=== PATIENT | female | born 1965 | race Two or more races ===

== ENCOUNTER 2025-02-07 09:16 | Outpatient (CLI) | payer OTHER | END 2025-02-07 09:26 | disposition home or self-care (01) | LOC: RAD 09:16 | PROVIDERS: ATTEND Internal Medicine Cardiovascular Disease | DX: I11.9 Hypertensive heart disease without heart failure (principal); E11.9 Type 2 diabetes mellitus without complications; R07.9 Chest pain, unspecified ==

== ENCOUNTER 2025-04-08 09:14 | Emergency (ER) | payer OTHER ==
[~2025-04-08] VITALS: Ht 170.2 cm; Wt 92.5 kg
[2025-04-08] MEDS ORDERED: METFORMIN HCL1000 M2 (09:28)
[2025-04-08 09:29] VITALS: BP 157/69; O2SAT 97
[2025-04-08] MEDS ORDERED: LOSARTAN-HCTZ1 EACH (09:29)
[2025-04-08] MEDS ORDERED: GLIPIZIDE XL10 MG (09:29)
[2025-04-08] MEDS ORDERED: ACETAMINOPHEN 500 MG GEL..CAP PO ONE ×2 (09:45→09:49)
[2025-04-08] MEDS ORDERED: METHYLPREDNISOLONE SOD SUCC 125 MG VIAL IV ONE (09:45)
[2025-04-08] MEDS ORDERED: METHYLPREDNISOLONE SOD SUCC 125 MG VIAL ONE (09:49)
[2025-04-08] MEDS ORDERED: SODIUM CHLORIDE FOR INHALATION 1 VIAL.NEB IH ONE ×2 (10:00→10:54)
[2025-04-08] MEDS ORDERED: CODEINE PHOSPHATE/GUAIFENESIN 5 ML ML PO ONE (10:00)
[2025-04-08] MEDS ORDERED: GUAIFENESIN/DEXTROMETHORPHAN 100MG/10ML BLIST.PACK PO ONE ×2 (10:00→10:01)
[2025-04-08 10:10] LABS: BASO % 0.3 % (0.1-1.2); EOS # 0.36 (0.04-0.54); EOS % 3.2 % (0.7-7.0); LYMPH # 4.51 (1.18-3.74); LYMPH % 40.1 % (19.3-53.1); MEAN PLATELET VOLUME 10.40 fl (9.4-12.4); MONO # 0.52 (0.24-0.82); MONO % 4.6 % (4.7-12.5); NEUT # 5.78 (1.56-6.13); NEUT % 51.4 % (34.0-71.1); RED CELL DISTRIBUTION WIDTH 12.2 % (11.6-14.4)
[2025-04-08 10:26] LABS: URINE APPEARANCE Clear; URINE BILIRRUBIN Negative (NEGATIVE); URINE BLOOD Negative; URINE COLOR Yellow; URINE GLUCOSE Negative (NEGATIVE); URINE KETONE Negative (NEGATIVE); URINE LEUKOCYTE Negative; URINE NITRATE Negative; URINE PROTEIN Negative (NEGATIVE); URINE UROBILINOGEN 0.2 E.U./dl
[2025-04-08 10:27] LABS: URINE BACTERIA 21.5 uL (0.0-1933); URINE EPITHELIAL CELLS 5.2 uL (0.0-38.8); URINE WBC 2.6 uL (0.0-23.2)
[2025-04-08 10:39] LABS: URINE CAST 0.29 uL (0.0-1.40); URINE RBC 0.7 uL (0.0-20.8)
[2025-04-08 10:50] LABS: ALT/SGPT 37.0 U/L (12-78); AST/SGOT 21.0 U/L (15-37); BILIRUBIN TOTAL 0.37 mg/dL (0.3-1.2); BUN CREA RATIO 18.0 (7.0-25.0); CREATININE SERUM 0.84 mg/dL (0.55-1.02); GFR 69.64; GLOBULINA 4.8 G/DL (2.4-3.5); GLUCOSE FASTING 118.0 mg/dL (65-100); OSMOLALITY SERUM 285.0 MOSM/KG (275-295)
[2025-04-08 10:53] LABS: COVID-19 AG NEGATIVE (NEGATIVE)
[2025-04-08] MEDS ORDERED: ALBUTEROL SULFATE 3 ML/2.5 MG AMPUL.NEB IH ONE (10:55)
[2025-04-08] MEDS ORDERED: BENZONATATE100 MG PO (12:44)
[2025-04-08] MEDS ORDERED: NEBUSAL4 ML IH (12:44)
== END 2025-04-08 13:24 | disposition home or self-care (01) ==
LOC: ER 09:14
DX: J40 Bronchitis, not specified as acute or chronic (principal); J04.0 Acute laryngitis; H61.21 Impacted cerumen, right ear